=== PATIENT | male | born 1995 | race Two or more races ===

== ENCOUNTER 2025-01-23 15:57 | Emergency (ER) | payer MEDICAID ==
[~2025-01-23] VITALS: Ht 182.9 cm; Wt 104.5 kg
[2025-01-23 16:02] VITALS: BP 141/89; PULSE 75; RESP 18; TEMP 98.5; O2SAT 99
[2025-01-23] MEDS ORDERED: BUPR1FIL3 SL (17:44)
[2025-01-23] MEDS: BUPRENORPHINE HCL/NALOXONE HCL 8-2 MG SUBLINGUAL TABLET SL ONE (18:07)
== END 2025-01-23 18:20 | disposition home or self-care (01) ==
LOC: EMS 15:57
DX: F11.23 Opioid dependence with withdrawal (principal); J45.909 Unspecified asthma, uncomplicated; F17.210 Nicotine dependence, cigarettes, uncomplicated
CPT/HCPCS: 99283